=== PATIENT | female | born 1940 | race Caucasian/White ===

== ENCOUNTER 2017-07-15 15:34 | Inpatient (IN) | payer MEDICARE, BC ==
[2017-07-15] MEDS ORDERED: Sodium Chloride 0.9% 10 ML Syringe FLUSH PRN (17:40)
[2017-07-15 17:44] LABS: BASE EXCESS ARTERIAL 1 mmol/L ((-2)-(+3)); BICARBONATE,ARTERIAL 28.8 mmol/L (22-26); O2 DELIVERY DEVICE NASAL CANNULA; O2 SATURATION ARTERIAL 85 % (95-100); PCO2 ARTERIAL 62 mmHg (35-45); PO2 ARTERIAL 54 mmHg (70-100)
[2017-07-15 17:46] LABS: O2 FLOW RATE 2
[2017-07-15 17:47] LABS: ALLEN TEST 0
[2017-07-15] MEDS: Levofloxacin/Dextrose 5%-Water 750 MG in Premix Bag 1 BAG IV SCH (19:32)
[2017-07-15] MEDS: Metoclopramide 10 MG Tab PO SCH (19:37)
--- NOTE | 2017-07-15 19:37 | HP ---
CHIEF COMPLAINT: Increasing shortness of breath. HISTORY OF PRESENT ILLNESS: Mrs. Nemesio Clement is a 77-year-old female with medical history significant for hypertension, hyperlipidemia, type 2 diabetes mellitus, obesity, multiple surgeries in the past including a back surgery back in August, initially evaluated in the [facility] with complaints of shortness of breath and was noted to have severe hypoxia with saturating only at 60% on room air needing admission to the hospital. At this time, the patient claims that she has been short of breath for the last few weeks more so in the last week, which has been progressively getting worse. She grades the shortness of breath as 6/10 in intensity, which gets aggravated on ambulation, relieved with rest. Not associated with any nausea or vomiting. Denies any ongoing chest pain. No complaints of fevers or chills. No complaints of cough with sputum in the last few days. No complaints of abdominal pain. No complaints of chest pain. No complaints of diarrhea in the last few days. The patient had recent visitation to [facility] and has recommended to undergo a CT scan of the chest along with 2D echocardiogram and pulmonary function test, but the patient did not get a chance to follow with those appointments yet. The patient denied any history of chest pains on exertion, but has dyspnea on exertion. No history of orthopnea or paroxysmal nocturnal dyspnea. The patient denied any history of hematemesis, hematochezia, or melanotic stools. Normal bowel and bladder habits, but sometimes she gets constipated. REVIEW OF SYSTEMS: A complete review of system including skin, ear, nose, and throat, cardiovascular system, respiratory system, gastrointestinal system, genitourinary system, hematology, oncology, neurology, allergy/immunology were all evaluated and were negative except for the above-said notes. PAST MEDICAL HISTORY: Significant for hypertension, type 2 diabetes mellitus, hyperlipidemia, obesity, gastroesophageal reflux disease, fibromyalgia, degenerative disc disease, diverticulosis, chronic kidney disease, chronic venous insufficiency, chronic low back pain, coronary artery disease, renal failure, and lumbar spondylosis. PAST SURGICAL HISTORY: Significant for varicose vein surgery, hernia repair, thyroid gland biopsy, cholecystectomy, carpal tunnel release, cardiac catheterization, ankle surgery, joint replacement, laparotomy, appendicectomy, neck thyroidectomy, ovarian cyst removal, and upper endoscopy. FAMILY HISTORY: Significant for hypertension, heart disease, liver cancer, cerebrovascular accident, diabetes, and thyroid disease in her mother; heart disease, diabetes and stroke in her father; and breast cancer and diabetes in her sister. SOCIAL HISTORY: The patient denied any history of smoking tobacco. No history of alcohol intake. ALLERGIES: The patient noted to have allergies to amitriptyline and sulfa antibiotics. HOME MEDICATIONS: Include: 1. Ultram 100 mg 3 times a day. 2. Hydralazine 50 mg q.12 hourly. 3. Glipizide 20 mg daily. 4. Lipitor 20 mg at bedtime. 5. Spironolactone 25 mg daily. 6. Januvia 25 mg daily. 7. Pregabalin 75 mg daily. 8. Oxybutynin 10 mg twice a day. 9. Metoprolol 100 mg twice a day. 10.Reglan 5 mg 3 times a day. 11.Levothyroxine 50 mcg as directed. 12.Diltiazem 120 mg twice a day. 13.Allopurinol 100 mg at bedtime. 14.Ascorbic acid 500 mg at bedtime. 15.Aspirin 81 mg daily. 16.Bumetanide 2 mg twice a day. PHYSICAL EXAMINATION: Vital Signs: To be obtained. General Appearance: The patient is well oriented to time, place, and person, follows commands spontaneously. Cardiovascular: S1, S2 heard with normal intensity. Distant heart sounds. Respiratory: Mild crepitations at the bases. No wheezes. Abdomen: Soft. Bowel sounds positive. Nontender. No rigidity. Extremities: 2 to 3+ pitting edema in bilateral lower extremities. Chronic venous stasis noted. Equal edema to the lower extremities bilaterally. Neurologic: No gross focal neurological deficits. LABORATORY DATA: No new labs ordered. We will order for CBC, CMP, BNP, and troponins, and we will also order a CT scan of the chest. We will order for a 12-lead EKG. We will closely follow. ASSESSMENT: 1. Acute hypoxic respiratory failure. 2. Obesity. 3. Hypertension. 4. Type 2 diabetes mellitus. 5. Hyperlipidemia. 6. Gastroesophageal reflux disease. PLAN: 1. Acute hypoxic respiratory failure. The patient is noted to be hypoxic. She is requiring 2 to 3 L of nasal cannula oxygen to maintain saturation of 90%. Exact etiology not clear. We will order for a serum B-natriuretic peptide. We will order for 2D echocardiogram, and we will order for a CT scan of the chest. Given her obesity, not sure if we can find anything details on the chest x-ray, so would need to get a CT scan of the chest. Given her chronic lung disease and chronic kidney disease, we will go with a plain CT scan for now. We will also order for ultrasound Doppler of the lower extremities. Wells criteria is on the lower score so less probability of a PE or DVT. We will also get a D-dimer at this time and initiate diuretics as needed. The patient will get a BNP level at this time. We will also get a TSH level at this time. 2. Hypertension. The patient's blood pressure will be closely monitored. She is noted to be on beta-kwame, continue the same. Try to avoid any hypertensive episodes. 3. Type 2 diabetes mellitus. The patient is noted to be on insulin regimen. Check her fingersticks with each meals. Have her on supplemental scale insulin as needed for additional coverage of her blood glucose. 4. Deep venous thrombosis prophylaxis. We will have her on heparin 5000 units subcu q.8 hourly for DVT prophylaxis given her underlying chronic kidney disease. 5. Code status. The patient wants to be full code. 6. Discussed with the patient and also with Dr. Mas, transferring physician, regarding the plan of care. Reviewed the labs and medications. Reviewed the old charts. [facility] /[id number]
[2017-07-15] MEDS: Cholecalciferol (Vitamin D3) 400 Unit Tab PO SCH (21:06)
[2017-07-15] MEDS: hydrALAZINE 25 MG Tab PO SCH (21:08)
[2017-07-15] MEDS: traMADol 50 MG Tab PO SCH (21:11)
[2017-07-15] MEDS: Bumetanide 1 MG Tab PO SCH (21:12)
[2017-07-15] MEDS: Metoprolol Tartrate 50 MG Tab PO SCH (21:12)
[2017-07-15] MEDS: Diltiazem 120 MG Cap.CD PO SCH (21:13)
[2017-07-15] MEDS: Oxybutynin 5 MG Tab PO SCH (21:14)
[2017-07-15] MEDS: Ascorbic Acid 500 MG Tab PO SCH (21:15)
[2017-07-15] MEDS: atorvaSTATin 20 MG Tab PO SCH (21:15)
[2017-07-15] MEDS: Allopurinol 100 MG Tab PO SCH (21:15)
[2017-07-15] MEDS: Insulin Aspart 100 Units/ML 3 ML Pen SUBCUT SCH (21:18)
[2017-07-15] MEDS: Insulin Detemir 100 Units/ML 3 ML Pen SUBCUT SCH (21:18)
[2017-07-15] MEDS: Heparin Sodium 5,000 Units/ML Vial SUBCUT SCH (21:57)
[2017-07-15 22:16] LABS: BASE EXCESS ARTERIAL 2 mmol/L ((-2)-(+3)); BICARBONATE,ARTERIAL 28.5 mmol/L (22-26); O2 DELIVERY DEVICE BIPAP; O2 SATURATION ARTERIAL 89 % (95-100); PCO2 ARTERIAL 57 mmHg (35-45); PO2 ARTERIAL 61 mmHg (70-100)
[2017-07-16] MEDS: Levothyroxine 75 MCG Tab PO SCH (06:06)
[2017-07-16] MEDS: Heparin Sodium 5,000 Units/ML Vial SUBCUT SCH ×3 (06:07→22:02)
[2017-07-16] MEDS: Insulin Aspart 100 Units/ML 3 ML Pen SUBCUT SCH ×4 (08:30→20:49)
[2017-07-16] MEDS: Cholecalciferol (Vitamin D3) 400 Unit Tab PO SCH ×2 (08:57→20:35)
[2017-07-16] MEDS: Oxybutynin 5 MG Tab PO SCH ×2 (08:57→20:39)
[2017-07-16] MEDS: Metoclopramide 10 MG Tab PO SCH ×3 (08:58→17:42)
[2017-07-16] MEDS: traMADol 50 MG Tab PO SCH ×3 (08:59→20:41)
[2017-07-16] MEDS: Bumetanide 1 MG Tab PO SCH ×2 (08:59→13:16)
[2017-07-16] MEDS ORDERED: glipiZIDE 5 MG Tab.ER PO SCH (09:00)
[2017-07-16] MEDS: Aspirin 81 MG Tab.EC PO SCH (09:00)
[2017-07-16] MEDS: Pregabalin 75 MG Cap PO SCH (09:00)
[2017-07-16] MEDS: Multivitamins,Therapeutic Tab PO SCH (09:00)
[2017-07-16] MEDS: Spironolactone 25 MG Tab PO SCH (09:01)
[2017-07-16] MEDS: Metoprolol Tartrate 50 MG Tab PO SCH ×2 (09:04→20:38)
[2017-07-16] MEDS: Diltiazem 120 MG Cap.CD PO SCH ×2 (09:05→20:40)
[2017-07-16] MEDS: hydrALAZINE 25 MG Tab PO SCH ×2 (09:05→20:37)
[2017-07-16] MEDS: Insulin Detemir 100 Units/ML 3 ML Pen SUBCUT SCH ×3 (10:42→20:48)
[2017-07-16] MEDS ORDERED: Magnesium Hydroxide 400 MG/5 ML Susp 30 ML Cup PO PRN (11:12)
[2017-07-16] MEDS: Albuterol/Ipratropium 3.0-0.5 MG/3 ML Neb Soln NEB SCH ×3 (12:14→20:30)
[2017-07-16] MEDS: Budesonide 0.5 MG/2 ML Neb Susp NEB SCH ×2 (12:14→20:30)
--- NOTE | 2017-07-16 12:32 | PN ---
DATE: 07/16/2017 HISTORY OF PRESENT ILLNESS: Mrs. Herr is a 77-year-old female with medical history significant for hypertension, hyperlipidemia, type 2 diabetes mellitus, obesity, admitted to the hospital with acute hypoxic respiratory failure. For the last 24 hours, the patient was noted to be in acute hypoxic and hypercapnic respiratory failure on the ABG. The patient was treated with BiPAP after which her CO2 seems to be improving. She continues to have shortness of breath. She continues to be hypoxic. She denies any chest pain, but complains of shortness of breath 3 to 4/10 in intensity, relieved with BiPAP. The patient denies any chest pain. No abdominal pain. No nausea. No vomiting. No diarrhea. She was noted to have low blood sugar earlier this morning. REVIEW OF SYSTEMS: Cardiovascular, respiratory, gastrointestinal, neurology, constitutional were all evaluated. PHYSICAL EXAMINATION: Vital Signs: Temperature of 98.3, pulse of 60, blood pressure 123/61, respiratory rate of 20, saturating at 94% on oxygen. General Appearance: The patient is well oriented to time, place, and person. Follows commands spontaneously. Cardiovascular System: S1, S2 heard with normal intensity. No gallops. Respiratory System: Clear to auscultation bilaterally. Mild crepitations at the bases. No wheeze. Abdomen: Soft. Bowel sounds positive. Nontender. No rigidity. Extremities: Mild edema bilateral lower extremities. Neurology: No gross focal neurological deficit. MEDICATIONS: Reviewed. Continue with; 1. DuoNeb 3 mL nebulizer 3 times a day. 2. Allopurinol 100 mg at bedtime. 3. Ascorbic acid 500 mg at bedtime. 4. Aspirin 81 mg daily. 5. Lipitor 20 mg at bedtime. 6. Pulmicort nebulizer twice a day. 7. Bumex 2 mg twice a day. 8. Diltiazem 120 mg twice a day. 9. Glipizide 20 mg daily. 10.Heparin 5000 subcutaneous q.8 hourly. 11.NovoLog supplemental scale. 12.Levemir changed to 30 units twice a day. 13.Levaquin every 48 hours. 14.Levothyroxine 75 mcg daily along with 50 mcg. 15.Lopressor 100 mg twice a day. 16.Oxybutynin 10 mg twice a day. 17.Lyrica 75 mg daily. 18.Spironolactone 25 mg daily. 19.Tramadol 500 mg 3 times a day. LABORATORY DATA: Reviewed. WBC 9, hemoglobin 13.7, hematocrit 45.3, platelet count 147. Sodium 145, potassium 4.1, chloride 106, BUN 36, creatinine 1.7, glucose 70. ASSESSMENT: 1. Acute hypoxic-hypercapnic respiratory failure. 2. Type 2 diabetes mellitus, uncontrolled. 3. Hypertension. 4. Hyperlipidemia. 5. Obesity. 6. Possible bronchitis. 7. Gastroesophageal reflux disease. PLAN: 1. Acute respiratory failure. The patient presented with acute respiratory failure. She is noted to be in acute hypoxic and hypercapnic respiratory failure. She is requiring BiPAP at this time. We will repeat an ABG this morning. We will try to wean her off the BiPAP. We will continue supplemental oxygen. She would benefit from home oxygen and she also need to have an outpatient sleep apnea study which is actually scheduled. She will need outpatient follow with [facility]monary Clinic too. We will follow the echocardiogram and ultrasound Doppler of the lower extremities. 2. Hypertension, controlled. We will continue with current antihypertensive medication with a beta-kwame. 3. Type 2 diabetes mellitus. The patient was noted to have low blood sugar. We will decrease the glipizide to 10 mg. Decrease the Levemir to 30 units. We will change it to once a day dosing to avoid any further hypoglycemic episodes. Have her on hypoglycemic protocol. 4. Deep vein thrombosis prophylaxis. Continue with heparin for deep vein thrombosis prophylaxis. 5. Gastroesophageal reflux disease. We will have her on Pepcid at this time. 6. The patient is ordered for 2D echocardiogram and ultrasound Doppler of the lower extremities. We will closely follow. 7. Possible bronchitis. The patient is started on Levaquin empirically as she was also noted to have leukocytosis. 8. Discussed with family members regarding the plan of care. 9. Hypothyroidism. Continue with levothyroxine. [facility] /[id number]
--- NOTE | 2017-07-16 13:20 | US ---
CLINICAL HISTORY: 77-year-old female with a history of "vein stripping" right lower extremity who pre sents now with bilateral leg swelling. Rule out DVT. INTERPRETATION: Negative exam. No sign of intraluminal echogenic thrombus and normal compressibility deep veins both groin, thigh an d knees obese patient. Normal compression and satisfactory augmentation proximal deep calf veins, popliteal veins behind bot h knees and proximally in the femoral veins of both lower extremities. No Ortega's cyst identified behind either knee. CONCLUSION: No current sonographic evidence deep vein thrombosis either lower extremity.
[2017-07-16 17:14] LABS: BASE EXCESS ARTERIAL 4 mmol/L ((-2)-(+3)); BICARBONATE,ARTERIAL 31.9 mmol/L (22-26); O2 DELIVERY DEVICE NASAL CANNULA; O2 SATURATION ARTERIAL 91 % (95-100); PCO2 ARTERIAL 65 mmHg (35-45); PO2 ARTERIAL 60 mmHg (70-100)
[2017-07-16 17:20] LABS: ALLEN TEST rb; O2 FLOW RATE 3
[2017-07-16] MEDS: atorvaSTATin 20 MG Tab PO SCH (20:39)
[2017-07-16] MEDS: Famotidine 20 MG Tab PO SCH (20:40)
[2017-07-16] MEDS: Ascorbic Acid 500 MG Tab PO SCH (20:41)
[2017-07-16] MEDS: Allopurinol 100 MG Tab PO SCH (20:42)
[2017-07-17] MEDS: Heparin Sodium 5,000 Units/ML Vial SUBCUT SCH ×3 (06:30→22:43)
[2017-07-17] MEDS: Levothyroxine 50 MCG Tab PO SCH (06:30)
[2017-07-17] MEDS: Albuterol/Ipratropium 3.0-0.5 MG/3 ML Neb Soln NEB SCH ×3 (07:11→22:38)
[2017-07-17] MEDS: Budesonide 0.5 MG/2 ML Neb Susp NEB SCH ×2 (07:11→17:44)
[2017-07-17] MEDS: Insulin Aspart 100 Units/ML 3 ML Pen SUBCUT SCH ×4 (09:00→22:40)
[2017-07-17] MEDS: Bumetanide 1 MG Tab PO SCH ×2 (09:01→14:38)
[2017-07-17] MEDS: Metoclopramide 10 MG Tab PO SCH ×3 (09:02→17:39)
[2017-07-17] MEDS: glipiZIDE 5 MG Tab.ER PO SCH (09:02)
[2017-07-17] MEDS: Spironolactone 25 MG Tab PO SCH (09:03)
[2017-07-17] MEDS: Diltiazem 120 MG Cap.CD PO SCH ×2 (09:07→22:37)
[2017-07-17] MEDS: hydrALAZINE 25 MG Tab PO SCH (09:07)
[2017-07-17] MEDS: Pregabalin 75 MG Cap PO SCH (09:08)
[2017-07-17] MEDS: Metoprolol Tartrate 50 MG Tab PO SCH ×2 (09:08→22:39)
[2017-07-17] MEDS: Aspirin 81 MG Tab.EC PO SCH (09:08)
[2017-07-17] MEDS: traMADol 50 MG Tab PO SCH ×3 (09:09→22:41)
[2017-07-17] MEDS: Oxybutynin 5 MG Tab PO SCH ×2 (09:09→22:41)
[2017-07-17] MEDS: Famotidine 20 MG Tab PO SCH (09:09)
[2017-07-17] MEDS: Cholecalciferol (Vitamin D3) 400 Unit Tab PO SCH ×2 (09:09→22:43)
[2017-07-17] MEDS: Multivitamins,Therapeutic Tab PO SCH (09:09)
[2017-07-17] MEDS: Insulin Detemir 100 Units/ML 3 ML Pen SUBCUT SCH (10:26)
--- NOTE | 2017-07-17 12:11 | PN ---
DATE: 07/17/2017 SUBJECTIVE: Mrs. Herr is a 77-year-old female with medical history significant for hypertension, hyperlipidemia, type 2 diabetes mellitus, obesity, admitted with acute respiratory failure. For the last 24 hours, the patient went back on BiPAP last night. This morning, she is more awake and alert. She denies any chest pain. No shortness of breath. No abdominal pain. No nausea. No vomiting. No diarrhea. She tolerated the BiPAP very well. She has continued on nasal cannula oxygen. REVIEW OF SYSTEMS: Cardiovascular, respiratory, gastrointestinal, neurology, constitutional were all evaluated. PHYSICAL EXAMINATION: Vital Signs: Temperature of 98.7, pulse of 88, respiratory rate of 20, blood pressure 105/68, saturating at 92% on 2 L of oxygen. General Appearance: Patient is well oriented to time, place, and person. Follows commands spontaneously. Cardiovascular System: S1, S2 heard with normal intensity. No gallops. Respiratory System: Clear to auscultation bilaterally. Mild crepitations at the bases. No wheeze. Abdomen: Soft. Bowel sounds are positive. Nontender. No rigidity. Extremities: Mild edema in bilateral lower extremities. Neurology: No gross focal neurological deficits. MEDICATIONS: Reviewed. 1. DuoNeb 3 mL nebulizer 3 times a day. 2. Allopurinol 100 mg at bedtime. 3. Vitamin C 500 mg at bedtime. 4. Aspirin 81 mg daily. 5. Lipitor 20 mg at bedtime. 6. Pulmicort 0.5 mg nebulizer twice a day. 7. Bumex 2 mg oral twice a day. 8. Diltiazem 120 mg twice a day. 9. Pepcid 20 mg daily. 10.Glipizide 10 mg daily. 11.Heparin 5000 subcutaneous q.8 hourly. 12.Hydralazine 50 mg twice a day. 13.NovoLog supplemental scale. 14.Levofloxacin 750 mg every 48 hours. 15.Levothyroxine 75 mg daily along with 50. 16.Metoprolol 100 mg twice a day. 17.Spironolactone 25 mg every other day. 18.Tramadol 100 mg 3 times a day. LABORATORY DATA: Reviewed. Sodium 141, potassium 4.4, chloride 102, bicarb 34, BUN 41, creatinine 1.6, glucose 115. ASSESSMENT: 1. Acute respiratory failure with hypoxia and hypercapnia. 2. Obesity. 3. Possible sleep apnea, awaiting for sleep study. 4. Type 2 diabetes mellitus. 5. Hyperlipidemia. 6. Obesity. 7. Possible bronchitis. 8. Gastroesophageal reflux disease. PLAN: 1. Acute respiratory failure. The patient was admitted with acute hypoxic and hypercapnic respiratory failure. She required BiPAP. We also have her on nebulizer treatment, which seems to be improving her symptoms. The patient had a CT scan of the chest, which do not show any congestion, but showed evidence of possible bronchitis, so empirically started on antibiotics responding well to the treatment. She would need home oxygen and she would also need CPAP, but she is to have a formal sleep study as an outpatient. 2. Type 2 diabetes mellitus, uncontrolled. The patient was noted to have low blood sugars. We will hold off her Levemir and check her fingersticks with each meals, have her on hypoglycemic protocol. Further dose adjust of the insulin to optimize the blood sugars. 3. Hypothyroidism. Continue with current dose of levothyroxine. 4. Obesity. The patient was educated about weight reduction to help with her respiratory failure and sleep apnea. 5. Possible bronchitis. The patient is empirically on Levaquin, continue the same. 6. Gastroesophageal reflux disease. Continue with proton pump inhibitor. 7. Hypertension. The patient tends to have lower blood pressure. She is noted to be on hydralazine. We will hold hydralazine for now to optimize the blood pressure. 8. The patient had a 2D echocardiogram on this admission, which shows good ejection fraction 60% to 65%, but the patient was noted to have mildly dilated right ventricle, no regional wall motion abnormalities noted at this time. Continue with current dose of diuretics with Bumex. 9. Discussed with family members at bedside. [facility] /[id number]
--- NOTE | 2017-07-17 12:56 | EKG ---
07/15/2017 - REYNALDO REID - Nam 12-lead EKG shows normal sinus rhythm with mild right bundle-branch block. No significant ST elevation or ST depression noted on this 12-lead EKG. [facility] /[id number]
[2017-07-17] MEDS: Levofloxacin/Dextrose 5%-Water 750 MG in Premix Bag 1 BAG IV SCH (17:59)
[2017-07-17] MEDS: atorvaSTATin 20 MG Tab PO SCH (22:39)
[2017-07-17] MEDS: Ascorbic Acid 500 MG Tab PO SCH (22:42)
[2017-07-17] MEDS: Allopurinol 100 MG Tab PO SCH (22:43)
[2017-07-18] MEDS: Budesonide 0.5 MG/2 ML Neb Susp NEB SCH ×2 (06:48→17:48)
[2017-07-18] MEDS: Albuterol/Ipratropium 3.0-0.5 MG/3 ML Neb Soln NEB SCH ×3 (06:48→22:56)
[2017-07-18] MEDS: Heparin Sodium 5,000 Units/ML Vial SUBCUT SCH ×3 (07:17→22:56)
[2017-07-18] MEDS: Levothyroxine 75 MCG Tab PO SCH (07:17)
--- NOTE | 2017-07-18 08:49 | PN ---
DATE: 07/18/2017 SUBJECTIVE: Mrs. Herr is a 77-year-old female with medical history significant for hypertension, hyperlipidemia, type 2 diabetes mellitus, and obesity, admitted with acute respiratory failure and possible sleep apnea. For the last 24 hours, the patient was off the BiPAP last night. She tolerated it very well. She is currently on nasal cannula oxygen, continuing the same. She denies any chest pain. No shortness of breath. No abdominal pain. No nausea. No vomiting. No diarrhea. Complains of mild pain at the left toe, secondary to her nail. REVIEW OF SYSTEMS: Cardiovascular, respiratory, gastrointestinal, neurology, and constitutional were all evaluated. PHYSICAL EXAMINATION: Vital Signs: Temperature of 98.7, pulse of 61, blood pressure 121/61, respiratory rate of 18, and saturating at 96% on 3 L of oxygen. General Appearance: The patient is well oriented to time, place, and person. Follows commands spontaneously. Cardiovascular System: S1 and S2 heard with normal intensity. No gallops. Respiratory System: Clear to auscultation bilaterally. Mild crepitations at the bases. No wheeze. Abdomen: Soft. Bowel sounds positive. Nontender. No rigidity. Extremities: Edema in bilateral lower extremities, improving. Neurology: No gross focal neurological deficit. MEDICATIONS: 1. Continue with allopurinol 100 mg at bedtime and aspirin 81 mg daily. 2. Continue with Pulmicort and DuoNeb nebulizer. 3. We will hold the Bumex today and restart it tomorrow 2 mg oral twice a day. 4. Continue diltiazem 120 twice a day. Rest of the medications are reviewed. LABORATORY DATA: Sodium 136, potassium 4.7, chloride 94, bicarb 34. BUN 43, creatinine 1.6, glucose 103. B-natriuretic peptide 100. ASSESSMENT: 1. Acute respiratory failure with hypoxia and hypercapnia on admission. 2. Obesity. 3. Possible sleep apnea, awaiting for sleep study. 4. Type 2 diabetes mellitus. 5. Hypertension. 6. Hyperlipidemia. 7. Possible bronchitis. PLAN: 1. Acute respiratory failure. This seems to be much improving. The patient was requiring BiPAP on initial presentation to the hospital. She was able to be off the BiPAP at this time. We will continue supplemental oxygen to maintain a saturation of 95%. The patient may need home oxygen. We will get a social work nurse consult for imaging and for home oxygen at the time of discharge. 2. Type 2 diabetes mellitus, improving. Continue with current treatment plan. Check her fingersticks with each meals. Have her on supplemental scale insulin as needed for additional coverage of her blood glucose. 3. Possible bronchitis. The patient was empirically started on antibiotic. Continue with the same. 4. Possible discharge in the a.m. if she remains hemodynamically stable. [facility] /[id number]
[2017-07-18] MEDS: Insulin Aspart 100 Units/ML 3 ML Pen SUBCUT SCH ×4 (08:54→22:58)
[2017-07-18] MEDS: glipiZIDE 5 MG Tab.ER PO SCH (08:56)
[2017-07-18] MEDS: Metoclopramide 10 MG Tab PO SCH ×3 (08:57→17:38)
[2017-07-18] MEDS: Diltiazem 120 MG Cap.CD PO SCH ×2 (08:58→22:54)
[2017-07-18] MEDS: Aspirin 81 MG Tab.EC PO SCH (08:59)
[2017-07-18] MEDS: Oxybutynin 5 MG Tab PO SCH ×2 (09:00→22:53)
[2017-07-18] MEDS: Pregabalin 75 MG Cap PO SCH (09:00)
[2017-07-18] MEDS ORDERED: hydrALAZINE 25 MG Tab PO SCH (09:00)
[2017-07-18] MEDS: Famotidine 20 MG Tab PO SCH (09:01)
[2017-07-18] MEDS: Multivitamins,Therapeutic Tab PO SCH (09:01)
[2017-07-18] MEDS: traMADol 50 MG Tab PO SCH ×3 (09:02→22:57)
[2017-07-18] MEDS: Cholecalciferol (Vitamin D3) 400 Unit Tab PO SCH ×2 (09:03→22:53)
[2017-07-18] MEDS: Metoprolol Tartrate 50 MG Tab PO SCH ×2 (09:18→22:55)
[2017-07-18] MEDS: Spironolactone 25 MG Tab PO SCH (09:26)
[2017-07-18] MEDS: atorvaSTATin 20 MG Tab PO SCH (22:53)
[2017-07-18] MEDS: Ascorbic Acid 500 MG Tab PO SCH (22:55)
[2017-07-18] MEDS: Allopurinol 100 MG Tab PO SCH (22:57)
[2017-07-19] MEDS: Levothyroxine 50 MCG Tab PO SCH (06:19)
[2017-07-19] MEDS: Heparin Sodium 5,000 Units/ML Vial SUBCUT SCH ×3 (06:20→21:43)
[2017-07-19] MEDS: Albuterol/Ipratropium 3.0-0.5 MG/3 ML Neb Soln NEB SCH ×3 (07:46→21:42)
[2017-07-19] MEDS: Budesonide 0.5 MG/2 ML Neb Susp NEB SCH ×2 (07:46→17:15)
[2017-07-19] MEDS: Insulin Aspart 100 Units/ML 3 ML Pen SUBCUT SCH ×4 (08:33→21:46)
[2017-07-19] MEDS: Bumetanide 1 MG Tab PO SCH ×3 (08:34→15:10)
[2017-07-19] MEDS: glipiZIDE 5 MG Tab.ER PO SCH (08:34)
[2017-07-19] MEDS: Metoclopramide 10 MG Tab PO SCH ×3 (08:35→17:13)
[2017-07-19] MEDS: Oxybutynin 5 MG Tab PO SCH ×2 (08:35→21:44)
[2017-07-19] MEDS: Multivitamins,Therapeutic Tab PO SCH (08:36)
[2017-07-19] MEDS: Aspirin 81 MG Tab.EC PO SCH (08:36)
[2017-07-19] MEDS: Diltiazem 120 MG Cap.CD PO SCH ×2 (08:37→21:50)
[2017-07-19] MEDS: Pregabalin 75 MG Cap PO SCH (08:37)
[2017-07-19] MEDS: traMADol 50 MG Tab PO SCH ×3 (08:38→21:45)
[2017-07-19] MEDS: Metoprolol Tartrate 50 MG Tab PO SCH ×2 (08:39→21:51)
[2017-07-19] MEDS: Famotidine 20 MG Tab PO SCH (08:39)
[2017-07-19] MEDS: Cholecalciferol (Vitamin D3) 400 Unit Tab PO SCH ×2 (08:40→21:43)
--- NOTE | 2017-07-19 15:11 | PN ---
DATE: 07/19/2017 SUBJECTIVE: Ms. Nemesio Wesley is a 77-year-old female with medical history significant for hypertension, hyperlipidemia, type 2 diabetes mellitus, and obesity admitted with acute respiratory failure with hypoxia and hypercapnia and possible underlying sleep apnea. For the last 24 hours, she is off the BiPAP, she is able to tolerate well on nasal cannula oxygen. She denies any chest pain. No shortness of breath. No abdominal pain. No nausea. No vomiting. No diarrhea. REVIEW OF SYSTEMS: Cardiovascular, respiratory, gastrointestinal, neurology, and constitutional were all evaluated. PHYSICAL EXAMINATION: Vital Signs: Temperature of 97.4, pulse of 56, blood pressure of 111/55, respiratory rate of 20, saturating at 96% on 3 L of oxygen. General Appearance: The patient is well oriented to time, place, and person. Follows commands spontaneously. Cardiovascular System: S1, S2 heard with normal intensity. No gallops. Respiratory System: Clear to auscultation bilaterally. No wheeze. No crepitations. Abdomen: Soft. Bowel sounds positive. Nontender. No rigidity. Extremities: Mild edema to lower extremities. Neurology: No gross focal neurological deficits. MEDICATIONS: Reviewed. 1. Continue the DuoNeb 3 mL nebulizer 3 times a day. 2. Allopurinol 100 mg at bedtime. 3. Aspirin 81 mg daily. 4. Lipitor 20 mg at bedtime. 5. Pulmicort nebulizer twice a day. 6. Bumex 1 mg twice a day. 7. Cholecalciferol 2000 units twice daily. 8. Diltiazem 120 mg twice daily. 9. Pepcid 20 mg daily. 10.Glipizide XL 10 mg daily. 11.Heparin 5000 subcutaneous q.8 hourly. 12.NovoLog supplemental scale. 13.Levofloxacin 1 every 48 hours. 14.Levothyroxine 75 and 50 mcg daily. 15.Milk of magnesia 30 mL twice a day. 16.Reglan 5 mg 3 times a day. 17.Metoprolol 75 mg twice a day. 18.Oxybutynin 10 mg twice a day. 19.Lyrica 75 mg daily. 20.Spironolactone 25 mg every 48 hours. 21.Tramadol 100 mg 3 times a day. LABORATORY DATA: Sodium 135, potassium 5.1, chloride 94, bicarb 34, BUN 40, creatinine 1.6, and glucose 199. ASSESSMENT: 1. Acute respiratory failure with hypoxia and hypercapnia, improving. 2. Chronic kidney disease. 3. Hypertension. 4. Hyperlipidemia. 5. Obesity. 6. Possible sleep apnea, awaiting for sleep study. 7. Type 2 diabetes mellitus. 8. Possible bronchitis. PLAN: 1. Acute respiratory failure. The patient was treated with BiPAP on initial presentation to the hospital. We were able to wean off the BiPAP, she is able to saturate well on nasal cannula oxygen. She is requiring 2 to 3 L of nasal cannula oxygen to maintain a saturation of 96%. The patient will benefit from having a walking desat study prior to getting discharged from the hospital. She will need home oxygen. 2. Possible sleep apnea. The patient is noted to have sleep apnea. The patient is actually scheduled for sleep study as an outpatient. We will try to contact the clinic to prepone the sleep study to get it as soon as possible. 3. Hypertension. The patient's blood pressure seems to be on the lower side. We had to cut down on the hydralazine and discontinue the hydralazine, decrease the dose of metoprolol. We will further dose adjust the medication to optimize her blood pressure. 4. Chronic congestive heart failure, remains stable. The patient had an echocardiogram done on this admission, which showed good ejection fraction. She is noted to be in contracture alkalosis, so we will need to slow down the diuretics. We will check the Bumex to 1 mg twice a day from 2 mg twice a day. We will recheck a BNP and a BMP in a.m. 5. Hyperkalemia. The patient noted to have mildly elevated potassium, we will recheck a basic metabolic panel in next 6 hours and we will closely follow the patient. The patient was on telemetry unit without any acute pathology. 6. Possible bronchitis. The patient is empirically started on antibiotic, continue the same. 7. Discharge plans ongoing. We will have Physical Therapy and Occupational Therapy evaluate and treat the patient. 8. Discussed with family members over the phone regarding the plan of care. [facility] /[id number]
[2017-07-19] MEDS: Levofloxacin/Dextrose 5%-Water 750 MG in Premix Bag 1 BAG IV SCH (17:45)
[2017-07-19] MEDS: Allopurinol 100 MG Tab PO SCH (21:42)
[2017-07-19] MEDS: atorvaSTATin 20 MG Tab PO SCH (21:45)
[2017-07-20] MEDS: Heparin Sodium 5,000 Units/ML Vial SUBCUT SCH ×3 (06:17→21:53)
[2017-07-20] MEDS: Levothyroxine 75 MCG Tab PO SCH (06:17)
[2017-07-20] MEDS: Budesonide 0.5 MG/2 ML Neb Susp NEB SCH ×2 (07:34→17:11)
[2017-07-20] MEDS: Albuterol/Ipratropium 3.0-0.5 MG/3 ML Neb Soln NEB SCH ×3 (07:34→21:00)
[2017-07-20] MEDS: Insulin Aspart 100 Units/ML 3 ML Pen SUBCUT SCH ×4 (07:40→21:36)
[2017-07-20] MEDS: Oxybutynin 5 MG Tab PO SCH ×2 (08:06→20:55)
[2017-07-20] MEDS: Aspirin 81 MG Tab.EC PO SCH (08:06)
[2017-07-20] MEDS: Pregabalin 75 MG Cap PO SCH (08:07)
[2017-07-20] MEDS: Metoprolol Tartrate 50 MG Tab PO SCH ×2 (08:07→20:58)
[2017-07-20] MEDS: traMADol 50 MG Tab PO SCH ×3 (08:08→20:55)
[2017-07-20] MEDS: Diltiazem 120 MG Cap.CD PO SCH ×2 (08:09→20:54)
[2017-07-20] MEDS: Bumetanide 1 MG Tab PO SCH ×2 (08:09→15:38)
[2017-07-20] MEDS: glipiZIDE 5 MG Tab.ER PO SCH (08:09)
[2017-07-20] MEDS: Famotidine 20 MG Tab PO SCH (08:10)
[2017-07-20] MEDS: Metoclopramide 10 MG Tab PO SCH ×3 (08:10→17:18)
[2017-07-20] MEDS: Cholecalciferol (Vitamin D3) 400 Unit Tab PO SCH ×2 (08:11→20:57)
[2017-07-20] MEDS: Multivitamins,Therapeutic Tab PO SCH (08:11)
[2017-07-20] MEDS: Spironolactone 25 MG Tab PO SCH (10:44)
--- NOTE | 2017-07-20 11:01 | CR ---
Clinical history: 77-year-old female with cough. Interpretation: *Shaggy perihilar bronchitic pattern and bilateral midlung atelectasis as noted on CT exam 15 July 2017 (accentuated by less than optimal inspiratory effort morbidly obese patient) cy st. Cardiomegaly but no cephalization of vascular flow, signs of alveolar edema or dependent new pleural fluid accumulation. No lobar pneumonia. No pneumothorax. CONCLUSION: No acute new cardiopulmonary abnormality.
[2017-07-20 11:08] LABS: BASE EXCESS ARTERIAL 8 mmol/L ((-2)-(+3)); BICARBONATE,ARTERIAL 35.7 mmol/L (22-26); O2 DELIVERY DEVICE NASAL CANNULA; O2 SATURATION ARTERIAL 94 % (95-100); PCO2 ARTERIAL 64 mmHg (35-45); PO2 ARTERIAL 72 mmHg (70-100)
[2017-07-20 11:12] LABS: ALLEN TEST NOT PERFORMED; O2 FLOW RATE 3
[2017-07-20] MEDS: JANUVIA 25 MG PO SCH ×6 (13:37→13:59)
[2017-07-20] MEDS ORDERED: atorvaSTATin 10 MG Tab PO SCH (20:18)
[2017-07-20] MEDS: Allopurinol 100 MG Tab PO SCH (20:56)
[2017-07-21] MEDS: Levothyroxine 50 MCG Tab PO SCH (06:22)
[2017-07-21] MEDS: Heparin Sodium 5,000 Units/ML Vial SUBCUT SCH ×2 (06:22→14:27)
[2017-07-21] MEDS: Albuterol/Ipratropium 3.0-0.5 MG/3 ML Neb Soln NEB SCH ×2 (07:46→15:26)
[2017-07-21] MEDS: Budesonide 0.5 MG/2 ML Neb Susp NEB SCH (07:46)
[2017-07-21] MEDS: Insulin Aspart 100 Units/ML 3 ML Pen SUBCUT SCH ×3 (08:53→17:11)
[2017-07-21] MEDS: traMADol 50 MG Tab PO SCH ×2 (09:00→14:26)
[2017-07-21] MEDS: Pregabalin 75 MG Cap PO SCH (09:00)
[2017-07-21] MEDS: Aspirin 81 MG Tab.EC PO SCH (09:00)
[2017-07-21] MEDS: Metoprolol Tartrate 50 MG Tab PO SCH (09:01)
[2017-07-21] MEDS: Diltiazem 120 MG Cap.CD PO SCH (09:01)
[2017-07-21] MEDS: Multivitamins,Therapeutic Tab PO SCH (09:01)
[2017-07-21] MEDS: Famotidine 20 MG Tab PO SCH (09:02)
[2017-07-21] MEDS: Bumetanide 1 MG Tab PO SCH (09:02)
[2017-07-21] MEDS: glipiZIDE 5 MG Tab.ER PO SCH (09:03)
[2017-07-21] MEDS: Oxybutynin 5 MG Tab PO SCH (09:03)
[2017-07-21] MEDS: Metoclopramide 10 MG Tab PO SCH ×3 (09:03→17:11)
[2017-07-21] MEDS: JANUVIA 25 MG PO SCH (09:04)
[2017-07-21] MEDS: Cholecalciferol (Vitamin D3) 400 Unit Tab PO SCH (09:04)
[2017-07-21] MEDS ORDERED: Bumetanide 1 MG Tab PO SCH (09:55)
--- NOTE | 2017-07-21 13:31 | PN ---
DATE: 07/20/2017 SUBJECTIVE: Ms. Nemesio Wesley is a 77-year-old female with medical history significant for hypertension, hyperlipidemia, type 2 diabetes mellitus, obesity, admitted with acute respiratory failure with hypoxia and hypercapnia and possible underlying sleep apnea. For the last 24 hours, the patient is responding well to the treatment. She has continued on nasal cannula oxygen. She denies any chest pain. No shortness of breath. No abdominal pain. No nausea. No vomiting. No diarrhea. REVIEW OF SYSTEMS: Cardiovascular, Respiratory, Gastrointestinal, Neurology, Constitutional were all evaluated. PHYSICAL EXAMINATION: Vital Signs: Temperature of 97.8, pulse of 60, blood pressure 108/60, respiratory rate of 20, saturating 94% on 3 L of oxygen. General Appearance: The patient is well oriented to time, place, and person. Follows commands spontaneously. Cardiovascular System: S1, S2 heard with normal intensity. No gallops. Respiratory System: Clear to auscultation bilaterally. No wheeze. No crepitations. Abdomen: Soft. Bowel sounds positive. Nontender. Extremities: Mild edema in bilateral lower extremities. LABORATORY DATA: The patient had an ABG shows pH of 7.37, pCO2 of 64, pO2 of 72, bicarb of 35.7. Sodium 137, potassium 4.7, chloride 93, bicarb 36, BUN 41, creatinine 1.7, glucose 188. ASSESSMENT: 1. Acute hypoxic and hypercapnic respiratory failure, improving. 2. Chronic kidney disease. 3. Hypertension. 4. Hyperlipidemia. 5. Obesity. 6. Possible sleep apnea, awaiting for sleep study. 7. Type 2 diabetes mellitus. 8. Possible bronchitis. PLAN: 1. Acute respiratory failure: The patient was admitted with acute hypoxic and hypercapnic respiratory failure. We did a CT scan of the chest along with x-rays, but did not show any evidence of acute pathology. The patient could have underlying sleep apnea. She would benefit from sleep apnea study. She is scheduled for a sleep apnea study as an outpatient. We will continue supplemental oxygen. 2. Hypoxia: The patient continues to be hypoxic. She is requiring around 2 to 3 L of nasal cannula oxygen. We will try to get a walking desaturation study prior to getting discharged, thus the patient would qualify for home oxygen. 3. Hypertension: The patient's blood pressure seems to be on the lower side. We discontinued hydralazine. We decreased the metoprolol to 75 mg twice a day. One might consider changing the diltiazem to once a day. We will closely follow and further titrate the medication. 4. Chronic congestive heart failure, remains stable: Her BNP remains stable. She is noted to be on high dose of Bumex. We have been trying to titrate the Bumex to avoid any contracture alkalosis, and she will continue with spironolactone every other day. We will closely follow. Recheck a basic metabolic panel in the a.m. 5. Type 2 diabetes mellitus. The patient is currently on insulin regimen. Continue the same. Check her fingersticks with each meals. Have her on supplemental scale insulin as needed for additional coverage of her blood glucose. 6. Discharge plan ongoing, possible discharge in a.m. if she remains hemodynamically stable. [facility] /[id number] MTDD
--- NOTE | 2017-07-21 14:40 | DISCH ---
ADMITTING DIAGNOSES: 1. Acute hypoxic respiratory failure. 2. Obesity. 3. Type 2 diabetes mellitus. DISCHARGE DIAGNOSES: 1. Acute hypoxic respiratory failure with hypercapnia, resolved with BiPAP. 2. Possible sleep apnea, awaiting for sleep apnea study. 3. Obesity. 4. Hypertension, uncontrolled. 5. Chronic congestive heart failure. 6. Respiratory Failure with Hypoxia needing Home Oxygen, She is saturating only at 84% on Room air and 78% on exertion. She will need 3 liters of Oxygen by nasal canula at rest and 4 liters of Oxygen by nasal canula on Exertion. HISTORY OF PRESENTING ILLNESS: Mrs. Racquel Herr is a 77-year-old female with medical history significant for hypertension, hyperlipidemia, type 2 diabetes mellitus, obesity, and multiple surgeries in the past admitted to the hospital with acute hypoxic respiratory failure saturating only at 60-70% on room air. After admission, the patient had an arterial blood gas analysis, which showed evidence of acute hypoxic and hypercapnic respiratory failure. She had an ABG which shows pH of 7.32 with pCO2 of 57, PO2 of 61, requiring BiPAP treatment. She responded well to the treatment and on discharge, the patient was noted to have a normalized pH of 7.37, pCO2 of 64, and PO2 of 94. She is requiring nasal cannula oxygen. She had a walking desaturation study done on this admission. She will be discharged home on home oxygen. She is saturating only at 84% on Room air and 78% on exertion. She will need 3 liters of Oxygen by nasal canula at rest and 4 liters of Oxygen by nasal canula on Exertion. She also noted to have low blood pressure, so we had to discontinue the hydralazine. We decreased the metoprolol to 75 mg twice a day and we changed the Cardizem to once a day dosing to avoid any hypotensive episodes. She was noted to be intravascularly depleted with contracture alkalosis, so we changed the Bumex dose to 2 mg in the a.m. and 1 mg at p.m. and continue spironolactone every other day. She is advised to follow with her primary care physician next 1 week of time and follow with Nephrology Clinic and Pulmonary Clinic as scheduled. She is also has an appointment coming up with a sleep apnea study. She is advised to follow with sleep apnea study also. She is discharged home in stable condition. DISCHARGE MEDICATIONS: Include: 1. Allopurinol 100 mg at bedtime. 2. Ascorbic acid 500 mg at bedtime. 3. Aspirin 81 mg daily. 4. Bumex 2 mg in a.m. and 1 mg at 6 p.m. 5. Vitamin D3 of 2000 units twice a day. 6. Diltiazem 120 mg daily. 7. Insulin 35 units subcu twice a day. 8. Levothyroxine 75 mcg every other day with 50 mcg every other day. 9. Metoclopramide 5 mg 3 times daily with meals. 10.Metoprolol 75 mg twice a day. 11.Multivitamin 1 tablet daily. 12.Oxybutynin 10 mg twice daily. 13.Pregabalin Lyrica 75 mg daily. 14.Sitagliptin 25 mg daily. 15.Spironolactone 25 mg daily. 16.Lipitor 20 mg at bedtime. 17.Glipizide 20 mg daily. 18.Tramadol 100 mg 3 times a day. The patient is advised to stop taking the following pills: 1. Metoprolol 100 mg twice a day. 2. Diltiazem 120 mg twice a day. 3. Hydralazine 50 mg every 12 hours. PHYSICAL EXAMINATION: Vital Signs: On the day of discharge temperature of 98.4, pulse of 60, blood pressure 107/56, respiratory rate of 20, saturating at 93% on 3 L of oxygen. General Appearance: Patient is well oriented to time, place, and person. Follows commands spontaneously. Cardiovascular System: S1, S2 heard with normal intensity. No gallops. Respiratory System: Clear to auscultation bilaterally. No wheeze. No crepitations. Abdomen: Soft. Bowel sounds positive. Nontender. No rigidity. Extremities: 1 to 2+ edema in bilateral lower extremities. Neurology: No gross focal neurological deficits. CONDITION ON ADMISSION: Poor. CONDITION ON DISCHARGE: Stable. ACTIVITY: As tolerated. DIET: Cardiac healthy diet with consistent carbohydrate diet. 1. Follow with primary care physician next 1 week of time. 2. Follow up with the Nephrology Clinic and Pulmonary Clinic as scheduled. 3. To follow with sleep apnea study as scheduled. 4. Yor zakiya to supply Home Oxygen as detailed above. Spent over 35 minutes of time in evaluating and treating this patient and coordination of cares. [facility] /[id number] MTDD
[2017-07-21 15:58] VITALS: BP 112/47
[2017-07-22] MEDS ORDERED: Diltiazem 120 MG Cap.CD PO SCH (09:00)
== END 2017-07-21 17:20 | disposition home or self-care (01) | DRG 189 ==
LOC: DL.MS 15:34 → UNDOADMIN 15:34 → DL.MS 17:20
PROVIDERS: ADMIT Internal Medicine; ATTEND Internal Medicine
DX: J96.20 Acute and chronic respiratory failure, unspecified whether with hypoxia or hypercapnia (principal); I13.0 Hypertensive heart and chronic kidney disease with heart failure and stage 1 through stage 4 chronic kidney disease, or unspecified chronic kidney disease; I25.10 Atherosclerotic heart disease of native coronary artery without angina pectoris; N18.9 Chronic kidney disease, unspecified; E78.5 Hyperlipidemia, unspecified; E11.9 Type 2 diabetes mellitus without complications; K21.9 Gastro-esophageal reflux disease without esophagitis; M79.7 Fibromyalgia; G89.29 Other chronic pain; M54.5 Low back pain; I87.2 Venous insufficiency (chronic) (peripheral); Z79.4 Long term (current) use of insulin; G47.30 Sleep apnea, unspecified; I50.9 Heart failure, unspecified; Z88.2 Allergy status to sulfonamides; Z88.8 Allergy status to other drugs, medicaments and biological substances; Z79.84 Long term (current) use of oral hypoglycemic drugs; Z79.82 Long term (current) use of aspirin; Z79.899 Other long term (current) drug therapy
CPT/HCPCS: 36415; 36600; 71010; 71250; 80048; 80053; 81001; 82803; 82962; 83735; 83880; 84100; 84443; 84484; 85025; 85027; 85379; 87040; 93005; 93306; 93970; 94010; 94640; 94660; 97162-GP; 97165-GO; A9270-GY; J1644; J1815-GY; J1956; J7050

== ENCOUNTER 2018-10-11 18:15 | Emergency (ER) | payer MEDICARE, BC ==
[2018-10-11 18:54] VITALS: BP 159/75
[2018-10-11] MEDS ORDERED: Bacitracin Oint 1 GM U/D Packet TOP ONE (20:08)
--- NOTE | 2018-10-11 20:14 | EDM.PDOC ---
ED HPI GENERAL MEDICAL PROBLEM - General Chief Complaint: Head Injury Stated Complaint: FELL AND HIT HEAD Time Seen by Provider: 10/11/18 20:05 Source of Information: Reports: Patient History Limitations: Reports: No Limitations - History of Present Illness INITIAL COMMENTS - FREE TEXT/NARRATIVE: This 78 yo female patient reports to the ED with a laceration above her left eye. The patient reports she was walking into the basketball game when her ankle rolled causing her to slip and fall. The patient reports pain in her left wrist and has a laceration above her left eye. The patient was wearing glasses at the time of the incident. Onset: Today Duration: Hour(s): Location: Reports: Head, Upper Extremity, Left Quality: Reports: Ache, Dull Severity: Moderate Improves with: Reports: None Worsens with: Reports: None Associated Symptoms: Reports: No Other Symptoms - Related Data Allergies Allergy/AdvReac Type Severity Reaction Status Date / Time Sulfa (Sulfonamide Allergy Severe Rash Verified 10/11/18 18:43 Antibiotics) Home Meds: Home Meds Allopurinol [Zyloprim] 100 mg PO BEDTIME 07/22/16 [History] Cholecalciferol (Vitamin D3) [Vitamin D3] 2,000 unit PO BID 07/22/16 [History] Insulin Glarg,Human.Rec.Analog [Lantus Solostar] 35 units SUBCUT BID 07/22/16 [ History] Metoclopramide [Reglan] 5 mg PO TIDMEALS 07/22/16 [History] Oxybutynin 5 mg PO BID 07/22/16 [History] Spironolactone [Aldactone] 25 mg PO DAILY 07/22/16 [History] atorvaSTATin [Lipitor] 20 mg PO BEDTIME 07/22/16 [History] Levothyroxine 50 mcg PO .EVERY OTHER DAY 07/15/17 [History] Multivitamin [One Daily] 1 each PO DAILY 07/15/17 [History] Pregabalin [Lyrica] 75 mg PO DAILY 07/15/17 [History] Bumetanide 2 mg PO DAILY #30 tablet 07/21/17 [Rx] Diltiazem [Cardizem CD] 120 mg PO DAILY #30 cap.cd 07/21/17 [Rx] Insulin Glargine,Hum.Rec.Anlog [Basaglar Kwikpen U-100] 100 unit SQ 03/05/19 [ History] Liraglutide [Victoza 3-Anil] 18 mg SQ DAILY 10/11/18 [History] Metoprolol Tartrate [Lopressor] 50 mg PO DAILY 10/11/18 [History] Sucralfate 1 gm PO 10/11/18 [History] Past Medical History HEENT History: Reports: None Cardiovascular History: Reports: High Cholesterol, Hypertension, SOB on Exertion Respiratory History: Reports: SOB Gastrointestinal History: Reports: Hemorrhoids Genitourinary History: Reports: Other (See Below) Other Genitourinary History: chronic renal failure [employer]IST History: Reports: Musculoskeletal History: Reports: Arthritis, Back Pain, Chronic Neurological History: Reports: None Psychiatric History: Reports: None Endocrine/Metabolic History: Reports: Diabetes, Type II, Hypothyroidism Hematologic History: Reports: Iron Deficiency Immunologic History: Reports: None Oncologic (Cancer) History: Reports: None - Infectious Disease History Infectious Disease History: Reports: None - Past Surgical History Head Surgeries/Procedures: Reports: None HEENT Surgical History: Reports: Cataract Surgery Cardiovascular Surgical History: Reports: None Respiratory Surgical History: Reports: None GI Surgical History: Reports: Cholecystectomy, Colonoscopy, Hernia, Abdominal, Hernia Repair/Other Female Surgical History: Reports: None Endocrine Surgical History: Reports: Thyroid Biopsy, Thyroidectomy Neurological Surgical History: Reports: Vertebroplasty Other Neurological Surgeries/Procedures: pins/davie/grafting Musculoskeletal Surgical History: Reports: Carpal Tunnel, Knee Replacement, Other (See Below) Other Musculoskeletal Surgeries/Procedures:: pins/davie and grafting to low back Oncologic Surgical History: Reports: None Dermatological Surgical History: Reports: None Social & Family History - Family History Family Medical History: Noncontributory - Tobacco Use Smoking Status *Q: Never Smoker - Caffeine Use Caffeine Use: Reports: Soda Caffeine Use Comment: diet coke 2per day - Recreational Drug Use Recreational Drug Use: No ED ROS GENERAL - Review of Systems Review Of Systems: ROS reveals no pertinent complaints other than HPI. ED EXAM, HEAD INJURY - Physical Exam Exam: See Below Exam Limited By: No Limitations General Appearance: Alert, WD/WN, Mild Distress Head: Facial Lacerations Nexus Criteria: No: Posterior, Midline Cervical Tenderness, Evidence of Intoxication, Altered Level of Consciousness, Focal Neurological Deficit, Painful Distraction Injuries Eyes: Left Eye: Other (bruising of her left eye), Bilateral Eye: EOMI Ears: Normal External Exam, Normal Canal, Hearing Grossly Normal, Normal TMs Nose: Normal Inspection, Normal Mucousa, No Blood Throat/Mouth: Normal Inspection, Normal Lips, Normal Teeth, Normal Gums, Normal Oropharynx, Normal Voice, No Airway Compromise Neck: Non-Tender, Full Range of Motion, Normal Alignment, Normal Inspection Respiratory: No Respiratory Distress, Lungs Clear, Normal Breath Sounds, No Accessory Muscle Use, Chest Non-Tender Cardiovascular: Normal Peripheral Pulses, Regular Rate, Rhythm, No Edema, No Gallop, No JVD, No Murmur, No Rub GI/Abdominal Exam: Normal Bowel Sounds, Soft, Non-Tender, No Organomegaly, No Distention, No Abnormal Bruit, No Mass (Female) Exam: Deferred Rectal (Female) Exam: Deferred Back Exam: Full Range of Motion, Normal Inspection, NT Extremities: Arm Pain (left wrist pain) 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 As Tested, No Motor/Sensory Deficits, Alert, Normal Mood/Affect, Oriented x 3 Skin: Normal Color, Warm/Dry - [place] Coma Score Best Eye Response ([place] Path): (4) Open Spontaneously Best Verbal Response ([place] Path): (5) Oriented Best Motor Response ([place] Path): (6) Obeys Commands Suy[place] Total: 15 ED LACERATION/WOUND & TAYLA PROC - Laceration/Wound Repair Left Face Lac/wound length in cm: 2.0 Appearance: Subcutaneous Anesthetic Type: Local Local Anesthesia - Lidocaine (Xylocaine): 1% Plain Local Anesthetic Volume: 2cc Skin Prep: Chlorhexidine (Hibiciens), Saline Exploration/Debridement/Repair: Wound Explored, In a Bloodless Field, Explored to Base, No Foreign Material Found Closed with: Sutures Suture Size: other (5-0) # of Sutures: 3 Suture Type: Prolene, Interrupted, Simple Sterile Dressing Applied: Nurse Tetanus Status Addressed: Yes Complications: No Course - Vital Signs Last Recorded V/S: Last Vital Signs Temp 36.4 C 10/11/18 18:30 Pulse 86 10/11/18 18:30 Resp 16 10/11/18 18:30 BP 159/75 H 10/11/18 18:30 Pulse Ox 88 L 10/11/18 18:30 - Orders/Labs/Meds Orders: Active Orders 24 hr Category Date Time Status Vaccines to be Administered [RC] PER UNIT ROUTINE Care 10/11/18 20:08 Ordered Wrist Comp Min 3V Lt [CR] Urgent Exams 10/11/18 20:07 Ordered Meds: Medications Discontinued Medications Generic Name Dose Route Start Last Admin Trade Name Dixie PRN Reason Stop Dose Admin Bacitracin 1 dose 10/11/18 20:08 Bacitracin Oint 1 Gm TOP 10/11/18 20:09 ONETIME ONE Diphtheria/Tetanus/Acell Pertussis 0.5 ml 10/11/18 20:08 10/11/18 20:15 Adacel IM 10/11/18 20:09 0.5 ml .ONCE ONE Administration Lidocaine HCl 30 ml 10/11/18 20:08 10/11/18 20:40 Xylocaine-Mpf 1% INJECT 10/11/18 20:09 30 ml ONETIME ONE Administration Departure - Departure Time of Disposition: 20:47 Disposition: Home, Self-Care 01 Condition: Fair Clinical Impression: Fall from ground level Laceration of left eyebrow without complication Qualifiers: Encounter type: initial encounter Qualified Code(s): S01.112A - Laceration without foreign body of left eyelid and periocular area, initial encounter Strain of left wrist Qualifiers: Encounter type: initial encounter Qualified Code(s): S66.912A - Strain of unspecified muscle, fascia and tendon at wrist and hand level, left hand, initial encounter Distal radius fracture, left Qualifiers: Encounter type: initial encounter Fracture type: closed Fracture morphology: other fracture Qualified Code(s): S52.592A - Other fractures of lower end of left radius, initial encounter for closed fracture - Discharge Information *PRESCRIPTION DRUG MONITORING PROGRAM REVIEWED*: Not Applicable *COPY OF PRESCRIPTION DRUG MONITORING REPORT IN PATIENT JOSÉ ANTONIO: Not Applicable Instructions: Laceration Care, Adult, [id number], Sutured Wound Care, Easy-to -Read, Wrist Sprain, Adult, Wrist Fracture Treated With Immobilization, Easy-to- Read Forms: ED Department Discharge Care Plan Goals: The patient was advised of the examination and x-ray results during the visit. The patient's wound margins were well approximated during the visit. The patient was encouraged to keep the area clean and dry over the next 24 hours. The patient should have the sutures removed in approximately 5 days. The patient should continue to rest, ice and elevate her left wrist. The patient was placed in a wrist splint for immobilization. The patient should have a follow-up visit for a second x-ray of the wrist. If the patient has any additional symptoms or concerns, the patient should either return to the emergency department or visit her primary care facility. - My Orders Last 24 Hours: My Active Orders 10/11/18 20:07 Wrist Comp Min 3V Lt [CR] Urgent 10/11/18 20:08 Vaccines to be Administered [RC] PER UNIT ROUTINE - Assessment/Plan Last 24 Hours: My Active Orders 10/11/18 20:07 Wrist Comp Min 3V Lt [CR] Urgent 10/11/18 20:08 Vaccines to be Administered [RC] PER UNIT ROUTINE
[2018-10-11] MEDS: Diphtheria,Pertussis(Acell),Tetanus Vaccine 0.5 ML SDV IM ONE (20:15)
[2018-10-11] MEDS: Lidocaine 1% 30 ML SDV INJECT ONE (20:40)
== END 2018-10-11 21:00 | disposition home or self-care (01) ==
LOC: DL.ED 18:15
DX: S52.592A Other fractures of lower end of left radius, initial encounter for closed fracture (principal); S66.912A Strain of unspecified muscle, fascia and tendon at wrist and hand level, left hand, initial encounter; S01.112A Laceration without foreign body of left eyelid and periocular area, initial encounter; I12.9 Hypertensive chronic kidney disease with stage 1 through stage 4 chronic kidney disease, or unspecified chronic kidney disease; N18.9 Chronic kidney disease, unspecified; E11.22 Type 2 diabetes mellitus with diabetic chronic kidney disease; Z23 Encounter for immunization; E03.9 Hypothyroidism, unspecified; Z88.2 Allergy status to sulfonamides; Z79.4 Long term (current) use of insulin; Z79.899 Other long term (current) drug therapy; W01.0XXA Fall on same level from slipping, tripping and stumbling without subsequent striking against object, initial encounter; Y93.67 Activity, basketball
CPT/HCPCS: 12001; 12011; 29125; 73110-LT; 90471; 90715; 99283; 99283-25; J2001